=== PATIENT | female | born 1975 | race Caucasian/White ===

== ENCOUNTER → 2017-07-21 | Outpatient (CLI) | payer OTHER ==
[~2017-07-21] MED LIST: ALPHTAB4 PO; ASCO1CAP3 PO; CHOL200010 PO; GARLIC EXTRACT PO; KLN/5 PO; LACT3000 PO; MAGNESIUM/POTASSIUM PO; MISCCAP80 PO; MULTTAB58 PO; NAPR220T40 PO; OMEG10007 PO; POLY150C4 PO; PROG200C8 PO; TRAN1TAB47 PO; VITAMIN A PO
[2017-07-21 12:35] LABS: PTT PATIENT 26.8 SECONDS (21.0-31.0)
== END | disposition home or self-care (01) ==
LOC: C.LABBC 09:51
PROVIDERS: ATTEND Obstetrics & Gynecology
DX: N92.1 Excessive and frequent menstruation with irregular cycle (principal); D64.9 Anemia, unspecified

== ENCOUNTER 2019-05-03 08:07 | Inpatient (IN) ==
--- NOTE | 2019-04-23 08:37 | PAT Medication Instructions ---
Medication Instructions Date of Service April 23, 2019 Home Medications cholecalciferol (vitamin D3) 2,000 unit capsule 2,000 unit PO DAILY lactase 3,000 unit tablet 3,000 unit PO DAILY PRN multivitamin tablet 1 tab PO QAM naproxen sodium 220 mg tablet 220 mg PO DAILY PRN omega-3 acid ethyl esters 1 gram capsule 1 cap PO DAILY polysaccharide iron complex 150 mg iron capsule 150 mg PO QPM Floradix 20 mg PO BID bwyjg-p-dbqvfrkqldiff [Beano] 1 tab PO TIDM PRN ascorbic acid (vitamin C) [Vitamin C] 250 mg PO QID clonazepam 0.5 mg PO DAILY PRN iron ps [id number]-[id number] acid 1 cap PO QAM lactobacillus combination no.4 [Probiotic] 3,000 mmu cells PO QAM norethindrone acetate 5 mg PO QPM ASK your surgeon for instructions naproxen sodium 220 mg tablet 220 mg PO DAILY PRN ASK your prescriber and surgeon norethindrone acetate 5 mg PO QPM STOP taking 2 weeks before surgery (or as soon as possible if surgery is within 2 weeks) omega-3 acid ethyl esters 1 gram capsule 1 cap PO DAILY Floradix 20 mg PO BID DO NOT take the morning of surgery cholecalciferol (vitamin D3) 2,000 unit capsule 2,000 unit PO DAILY lactase 3,000 unit tablet 3,000 unit PO DAILY PRN multivitamin tablet 1 tab PO QAM polysaccharide iron complex 150 mg iron capsule 150 mg PO QPM [id number]-f-wjbpvfkgzgebf [Beano] 1 tab PO TIDM PRN ascorbic acid (vitamin C) [Vitamin C] 250 mg PO QID iron ps [id number]-[id number]-csibf acid 1 cap PO QAM lactobacillus combination no.4 [Probiotic] 3,000 mmu cells PO QAM Take morning of surgery clonazepam 0.5 mg PO DAILY PRN (if needed) Take evening before surgery clonazepam 0.5 mg PO DAILY PRN (if needed) Other Notes If you have any questions please call us at [phone] or [phone] or or [phone]
--- NOTE | 2019-04-23 10:17 | History and Physical Report ---
DATE OF ADMISSION: 04/24/2018 CHIEF COMPLAINT: Heavy vaginal bleeding, pelvic pain, anemia. HISTORY OF PRESENT ILLNESS: The patient is a 43-year-old 1, para 1. She has a history of arcuate wedge-shaped uterus, has been symptomatic with heavy vaginal bleeding for years and history of premature delivery at 34 weeks. She describes it is coming every 24 to 39 days. They can last from 6-10 days. She has 3-4 days of extremely heavy bleeding, soaking a pad and a tampon in under an hour and basically dropping her hemoglobin as a result of this bleeding. She is presently on iron supplements 4 times a day with vitamin C and she is barely able to keep her hemoglobin above 9 grams. Last hemoglobin on 04/11/2019 was 9.3 grams, presently been started on norethindrone 5 mg a day to stop her periods. She has continued on the iron supplements and she is scheduled for a total abdominal hysterectomy, preservation of the ovaries, removal of fallopian tubes in order to stop this heavy bleeding. PAST MEDICAL HISTORY: She has a boy in good health. ALLERGIES: SHE IS ALLERGIC TO SULFA WHICH GIVES HER A RASH. PAST SURGICAL HISTORY: She had 2 D&Cs. She had wisdom teeth removed. She had a colonoscopy. MEDICAL HISTORY: She has history of anemia. She has a history of interstitial cystitis. She has a history of irritable bowel, history of anxiety, neuropathy and myofascial pain syndrome. SOCIAL HISTORY: No smoking. No excessive alcohol intake. She works at home. FAMILY HISTORY: Mom 77, breast cancer diagnosed at age 65. Treated for leukemia. Father 71, of lung cancer at 71, has got 1 brother, 4 sisters, 1 sister is diabetic with high blood pressure. REVIEW OF SYSTEMS: HEAD: No symptoms of frequent or severe headaches, ear infections, nosebleeds or frequent severe sore throats. PHYSICAL EXAMINATION: GENERAL: Well-developed, well-nourished 43-year-old female, alert, oriented x3 and cooperative, no acute distress, appeared her stated age. EYES: Conjunctivae are pink. Sclerae white, no evidence of jaundice. EARS: Had normal light reflex bilaterally. HEART: Had regular rhythm. S1, S2 are normal. LUNGS: Clear to auscultation and percussion. ABDOMEN: Soft and nontender, no CVA tenderness. MUSCULOSKELETAL: No calf tenderness. PELVIC: Revealed an enlarged uterus about 8-9 weeks' size, retroverted. IMPRESSIONS OF THIS CASE: Status post removal of wisdom teeth, status post D and C x2, status post colonoscopy, myofascial pain syndrome, anemia, interstitial cystitis, irritable bowel, anxiety, neuropathy, suspected adenomyosis.
--- NOTE | 2019-04-23 10:43 | Anesthesiology Consultation ---
Date of Service April 23, 2019 Assessment & Plan (1) Encounter for pre-operative examination: - Check test AM DOS - Hx PONV: scopolamine patch ordered for AM DOS Chart Review Chart Review: Pending: Refer to Additional Notes / Consult section (pending preop labs, EKG) and Patient seen in Pre Admission Testing Teaching & Discussion Pre-Anesthesia Teaching/Discussion Notes: Instructed NPO after midnight before surgery,except medications with 15 cc of water. Medication instructions provided according to the PAT guidelines. History Surgery Operation Date: 05/03/19 10:35 Proposed Procedures p Total Abdominal Hysterectomy, Posisble Bilateral Salpingo Oophorectomy - Keon Shaffer MD Height/Weight Height: 5 ft 4 in Weight: 55.7 kg Allergies Allergy/AdvReac Type Severity Reaction Status Date / Time Sulfa (Sulfonamide Allergy Unknown RASH Verified 04/19/19 15:09 Antibiotics) Medications Home Medications Medication Instructions Recorded Confirmed Last Taken cholecalciferol (vitamin D3) 2,000 2,000 unit PO DAILY cap 04/06/19 04/19/19 Unknown unit capsule lactase 3,000 unit tablet 3,000 unit PO DAILY PRN tab 04/06/19 04/19/19 Unknown multivitamin tablet 1 tab PO QAM 04/06/19 04/19/19 Unknown naproxen sodium 220 mg tablet 220 mg PO DAILY PRN tab 04/06/19 04/19/19 Unknown omega-3 acid ethyl esters 1 gram 1 cap PO DAILY cap 04/06/19 04/19/19 Unknown capsule Floradix 20 mg PO BID 04/19/19 Unknown gdvex-x-lktrvrdxidxwe [Beano] 1 tab PO TIDM PRN 04/19/19 04/19/19 Unknown ascorbic acid (vitamin C) [Vitamin 250 mg PO QID 04/19/19 04/19/19 Unknown C] clonazepam 0.5 mg PO DAILY PRN 04/19/19 04/19/19 Unknown iron ps aaptvfw-[id number] acid 1 cap PO QAM 04/19/19 04/19/19 Unknown lactobacillus combination no.4 3,000 mmu cells PO QAM 04/19/19 04/19/19 Unknown [Probiotic] norethindrone acetate 5 mg PO QPM 04/19/19 04/19/19 Unknown Past Medical History Medical History Anxiety Heavy menstrual bleeding reason for upcoming procedure History of irregular heartbeat PVC's Interstitial cystitis Iron deficiency anemia hx blood transfusion (4U PRBCs) 12/2017 2/2 heavy menstrual bleeding-- hgb in the 7-8 range for past few months* Irritable bowel syndrome Neuropathy feet, hands Peripheral neuropathy Exercise / Class Metabolic Activity II 4-5 Yardwork/Stairs/Walk up hill Past Family History Family History Mother Deep vein thrombosis Breast cancer Hypertension Father Prostate cancer Myocardial infarction Lung cancer Aunt Uterine cancer maternal Sister Family history of diabetes mellitus Sister Family history of diabetes mellitus Past Surgical History Surgical History H/O laparoscopy diagnostic H/O oral surgery History of dilation and curettage X2; D&C, hysteroscopy: 12/28/17: Grade view 2 (slightly anterior), MAC#3, ETT 7 at [facility] History of hysteroscopy Hx of colonoscopy Past Anesthesia History No Hx of Anesthesia Complications (except PONV) and No Family Hx of Anesthesia Complications History of PONV History of PONV and Hx of Motion Sickness (occasional) Social History Smoking Status: Former smoker Do You Dip or Chew Tobacco: No Smoking End Date: Quit 1999 Hx Alcohol Use: Yes alcohol intake frequency: holidays/special occasions only Hx Substance Use: No Review of Systems Occasional palpitations 2/2 PVC's. Patient denies chest pain, shortness of breath, dyspnea on exertion, cough, wheezing. Physical Exam Vital Signs VITALS BP 96/59 (patient reports typically BP low-normal range in the 90's/50-60's) P 51 TEMP 98.4 SP02 100%RA RESP 16 PHYSICAL Full neck and c-spine range of motion. Full TMJ range of motion. TMD 3 finger breaths Mallampati Score 2 Dentition: upper/lower front chipped/worn 2/2 grinding Lungs: clear throughout to auscultation Cardiac: regular rate and rhythm, no murmurs noted Spine: normal Carotid arteries: negative bruit Extremities: no edema
[2019-04-23 12:13] LABS: Basophils # (auto) 0.01 K/uL (0-0.2); Basophils % (auto) 0.3 %; Eosinophils # (auto) 0.05 K/uL (0-0.5); Eosinophils % (auto) 1.3 %; Hematocrit (blood only) 34.4 % (37-47); Hemoglobin 11.1 g/dL (12.0-16.0); Lymphocytes % (auto) 18.2 %; Mean Corpuscular Hemoglobin 33.4 pg (25-34); Mean Corpuscular Hgb Conc 32.3 g/dL (32-36); Mean Corpuscular Volume 103.6 fL (80-100); Monocytes # (auto) 0.33 K/uL (0.11-0.59); Monocytes % (auto) 8.6 %; Neutrophils # (auto) 2.75 K/uL (1.4-6.5); Neutrophils % (auto) 71.6 %; Platelet Count 181 K/uL (130-400); RDW Coefficient of Variation 14.3 % (11.5-14.5); RDW Standard Deviation 55.1 fL (36.4-46.3); Red Blood Count 3.32 M/uL (4.2-5.4); White Blood Count 3.84 K/uL (4.8-10.8)
[2019-04-23 12:21] LABS: Partial Thromboplastin Ratio 0.9; Partial Thromboplastin Time 24.7 Seconds (21.0-31.0)
[2019-04-23 12:30] LABS: BUN Creatinine Ratio 25.8 (10-20); Calcium 9.6 mg/dl (8.5-10.1); Creatinine Clr Calc Pharmacy 118.2 ml/min; Est GFR (African American) 134.8; Est GFR (Non-African American) 116.3; Potassium 4.1 mmol/L (3.5-5.1)
[~2019-05-03 08:07] MED LIST changes: -ALPHTAB4 PO; -ASCO1CAP3 PO; -CHOL200010 PO; -GARLIC EXTRACT PO; -KLN/5 PO; -LACT3000 PO; +LR 15ML/HR IV SCH; -MAGNESIUM/POTASSIUM PO; -MISCCAP80 PO; -MULTTAB58 PO; -NAPR220T40 PO; -OMEG10007 PO; -POLY150C4 PO; -PROG200C8 PO; +SCOPOLAMINE 1.5 MG TDSY TD SCH; -TRAN1TAB47 PO; -VITAMIN A PO; +cefOXitin 2,000 MG in DEXTROSE 5% 50 ML IV SCH
--- NOTE | 2019-05-03 09:01 | History & Physical Bridge Note ---
Date of Service May 03, 2019 History & Physical Bridge Note I have examined the patient, reviewed the History & Physical and in the interval since the performance of the History & Physical I have noted the following changes of clinical significance: no changes noted
[2019-05-03] MEDS ORDERED: fentaNYL citrate 100 MCG/2 ML VIAL ONE (10:04)
[2019-05-03] MEDS ORDERED: MIDAZOLAM HCL 1 MG/ML 2ML VIAL ONE (10:04)
[2019-05-03] MEDS ORDERED: DEXAMETHASONE SOD INJ 4 MG/ML VIAL ONE (10:09)
[2019-05-03] MEDS ORDERED: ROCURONIUM BROMIDE 10 MG/ML 5 ML VIAL ONE (10:09)
[2019-05-03] MEDS ORDERED: ONDANSETRON INJ 2 MG/ML 2 ML VIAL ONE (10:09)
[2019-05-03] MEDS ORDERED: PROPOFOL IV EMULSION 10 MG/ML 20 ML VIAL IV ONE (10:09)
[2019-05-03] MEDS ORDERED: MoRPHine SULFATE PF 1 MG/ML 10 ML AMP/VIAL ONE (10:24)
[2019-05-03] MEDS ORDERED: HEPARIN (PORCINE) 1000 UNIT/ML 10 ML (CATH LAB USE ONLY) ONE (10:59)
[2019-05-03] MEDS ORDERED: NEOSTIGMINE METHYLSULFATE 5 MG/5 ML SYR ONE (12:45)
[2019-05-03] MEDS ORDERED: GLYCOPYRROLATE 0.2 MG/ML VIAL ONE (12:45)
--- NOTE | 2019-05-03 13:21 | Post Operative Brief Note ---
Immediate Post Op Note v1 Date of Surgery May 03, 2019 Pre & Post Diagnosis Operation Date: 05/03/19 09:15 Pre-Op Diagnosis: Heavy vaginal bleeding, pelvic pain, anemia Post-Op Diagnosis: Heavy vaginal bleeding, pelvic pain, anemia I identified the patient and participated in the time-out.: Yes Procedure Operation Date: 05/03/19 09:15 Actual Procedures p Total Abdominal Hysterectomy, Bilateral Salpingectomy(Bilateral) - Keon Shaffer MD suspension of vaginal cuff Surgeon Keon Shaffer MD Recruitment Consultant none Estimated Blood Loss 50 Findings Consistent with Post-Op Diagnosis Fluids 1200 ml Specimens uterus upper cervix both tubes Drains [place] Catheter (placed under general anethesia, tolerated well. ) and Other (yanira drain vaginal cuff) Anesthesia Type General Complications none Disposition Accompanied Patient To Recovery: No Disposition: Recovery Room
[2019-05-03] MEDS ORDERED: SENNA 8.6 MG TAB PO PRN (13:22)
[2019-05-03] MEDS ORDERED: bisacodyL 10 MG SUPP PR PRN (13:22)
[2019-05-03] MEDS ORDERED: MAGNESIUM HYDROXIDE SUSP 30 ML UDC PO PRN (13:22)
[2019-05-03] MEDS ORDERED: DiphenhydrAMINE HCL 50 MG/ML VIAL IV PRN (13:39)
[2019-05-03] MEDS ORDERED: NALOXONE HCL 0.4 MG/1 ML VIAL/CARP IV PRN (13:39)
[2019-05-03] MEDS ORDERED: ONDANSETRON INJ 2 MG/ML 2 ML VIAL IV PRN (13:39)
[2019-05-03] MEDS ORDERED: MoRPHine SULFATE PF 1 MG/ML 10 ML AMP/VIAL INT SPINAL ONE (13:39)
[2019-05-03] MEDS ORDERED: PROMETHAZINE HCL 25 MG in SODIUM CHLORIDE 0.9% 50 ML IV PRN (13:39)
[2019-05-03] MEDS ORDERED: NALOXONE HCL 0.08 MG in SYRINGE 1.8 ML IV PRN (13:39)
[2019-05-03] MEDS ORDERED: MoRPHine SULFATE 2 MG/ML CARP IV PRN (13:39)
[2019-05-03] MEDS ORDERED: ePHEDrine sulfate 50 MG/ML AMP IV PRN (13:39)
[2019-05-03] MEDS ORDERED: HYDROmorphone INJ 0.5 MG/0.5 ML SYR IV PRN (13:39)
[2019-05-03] MEDS ORDERED: METOCLOPRAMIDE HCL 20 MG in SODIUM CHLORIDE 0.9% 50 ML IV PRN (13:39)
[2019-05-03] MEDS ORDERED: NALBUPHINE HCL INJ 10 MG/ML AMP IV PRN (13:39)
[2019-05-03] MEDS ORDERED: LACTATED RINGER'S 500 ML IV PRN (13:39)
[2019-05-03] MEDS ORDERED: NALOXONE HCL 1 MG in SODIUM CHLORIDE 0.9% 1000ML 1,000 ML IV PRN (13:39)
[2019-05-03] MEDS ORDERED: SODIUM CHLORIDE 0.9% 1000ML 1,000 ML IV SCH (13:45)
[2019-05-03] MEDS ORDERED: DC INTRASPINAL MORPHINE SCH (13:45)
[2019-05-03] MEDS ORDERED: NO NARCOTICS OR SEDATIVES SCH (13:45)
--- NOTE | 2019-05-03 13:52 | Operative Report ---
DATE OF OPERATION: 05/03/2019 PROCEDURE: Total abdominal hysterectomy, suspension of vaginal cuff and bilateral salpingectomy. INDICATIONS FOR SURGERY: Anemia secondary to uncontrollable heavy vaginal bleeding. PREOPERATIVE DIAGNOSIS: Abnormal shaped uterus. POSTOPERATIVE DIAGNOSIS: Abnormal shaped uterus. SURGEON: Dr. Shaffer. ESTIMATED BLOOD LOSS: 50 mL. ANESTHESIA: General with spinal narcotics. OPERATIVE FINDINGS AND PROCEDURE: The patient was brought to the OR table, correctly identified by armband and conversation. General anesthesia was administered. Perineum and vagina were painted with Betadine paint, draped in usual sterile fashion. Catheter was placed into the bladder. Compression stockings were applied. Lower abdomen was painted with alcohol based sterilizing solution. Pfannenstiel incision was made, carried down to the anterior fascia by sharp dissection. Hemostasis was secured by electrocauterization. Fascia was incised transversely from the underlying muscle by blunt and sharp dissection. Recti muscles were in the midline exposing the peritoneum which was carefully raised and entered. The bowel and the abdomen was packed off from the pelvis. An O'Alberto-O'Ford self-retraining retractor was inserted into the incision. Uterus was grasped with a double tooth tenaculum. Round ligaments on either side were suture ligated, tagged and cut. Incision was made above the vesicouterine fold. Bladder was advanced out of the operative field. The tubes were carefully removed by suturing the mesosalpinx, the vasculature of the tubes with interrupted 3-0 plain, then the ovarian ligaments were cut by clamping close to the uterus, distal to the uterus and taking the tube along with the uterine specimen. They were cut on each side. The distal stumps were doubly ligated with transfixion suture of chromic catgut. Hemostasis was good. The uterine arteries were doubly clamped with curved Rashmi, cut, doubly ligated with chromic gut sutures and cauterized. Then, the bladder was advanced out of the operative field, upper portion of the cervix was also removed with a curved Rashmi sliding off the cervix on both the right and left side and then cutting the cardinal ligament with a stump and ligating with a transfixion suture of chromic catgut and then excising the surgical specimen, which consisted of the fundus of the uterus about half of the cervix in both tubes. Following this, the cervical edges were whipstitched open with a continuous interlocking suture of chromic catgut. I used a owuxep-yu-zhott suture of heavy Vicryl to obliterate the cul-de-sac by going proximally from the one uterosacral ligament to the other uterosacral ligament distally, pursestring the peritoneum in between and then going distally and then proximally, then tying it off. This obliterated the cul-de-sac and supported the cervix. I then suture ligated the stumps of the cardinal ligament to the edges of the cervix, brought the round ligaments down on each side, suture ligated to the cervical stump. I then reperitonealized the edges, which brought the peritoneal edges together, controlled all bleeding. A Carlos drain with a safety pin was pushed through the cervix into the vagina and the other end into the cul-de-sac, washed everything clean. Hemostasis was excellent. Packs were removed. The abdomen was closed anatomically. Peritoneum was closed with a mattress suture of chromic catgut. Recti muscles approximated with interrupted jgictb-fb-lkvkw suture of chromic catgut. The fascia was closed with continuous interlocking suture of Vicryl on each side, tied in the midline. SubQ was approximated with running plain and skin edge approximated with staple clips. I attest to the content of the Intraoperative Record and any orders documented therein. Any exception s are noted below.
--- NOTE | 2019-05-03 13:57 | Anesthesiology Progress Note ---
Date of Service May 03, 2019 Anesthesia Post Procedure Vital Signs Vital Signs: Temp Pulse Pulse Resp BP Pulse Ox 05/03/19 13:40 46 L 16 97/58 L 100 05/03/19 13:30 49 L 13 103/60 100 05/03/19 13:22 36.3 C L 57 L 16 96/59 L 100 05/03/19 08:26 37 C 59 L 18 116/74 97 Transfer of Care Handoff Completed per policy Notes Mental Status: alert / awake / arousable and participated in evaluation Patient Amnestic to Procedure: Yes Nausea / Vomiting: adequately controlled Pain: adequately controlled Airway Patency, RR, SpO2: stable & adequate BP & HR: stable & adequate Hydration State: stable & adequate Neuraxial Anesthesia: was administered and sensory block is resolving Anesthetic Complications: no major complications apparent
[2019-05-03] MEDS ORDERED: HYDROmorphone INJ 0.5 MG/0.5 ML SYR ONE (14:05)
[2019-05-03] MEDS: D5W AND LACTATED RINGERS 1,000 ML IV SCH ×2 (15:42→23:22)
[2019-05-03] MEDS: CHECK SCOPOLAMINE PATCH PLACEMENT SCH (15:44)
[2019-05-03] MEDS: MEPERIDINE HCL 25 MG/ML CARP IV PRN (15:44)
[2019-05-03] MEDS ORDERED: KETOROLAC 30 MG/ML VIAL IV ONE (19:50)
[2019-05-04] MEDS: MEPERIDINE HCL 25 MG/ML CARP IV PRN (04:56)
[2019-05-04] MEDS ORDERED: MEPERIDINE HCL 50 MG/ML CARP IV PRN (07:40)
[2019-05-04] MEDS ORDERED: ONDANSETRON INJ 2 MG/ML 2 ML VIAL IV PRN (07:40)
[2019-05-04] MEDS ORDERED: KETOROLAC 30 MG/ML VIAL IV PRN (07:40)
--- NOTE | 2019-05-04 09:55 | Obstetrical Progress Note ---
Date of Service May 04, 2019 Physical Exam Physical Exam: abdomen soft and non tender bowel sounds present and normal bandage removed incision is clean and dry vaginal bleeding scant no calf tenderness Results & Data Vital Signs (Past 12 Hours) Vital Signs Temp Pulse Resp BP Pulse Ox 05/04/19 06:15 15 98 05/04/19 05:15 16 98 05/04/19 04:35 37.3 C 69 17 105/61 100 05/04/19 04:15 16 99 05/04/19 03:15 15 98 05/04/19 02:15 16 98 05/04/19 01:15 14 99 05/04/19 00:15 16 98 05/03/19 23:25 37.1 C 71 16 110/66 99 05/03/19 23:15 15 97 05/03/19 22:15 15 100
[2019-05-04] MEDS: OXYCODONE/ACETAMINOPHEN 5mg/325mg TAB PO PRN ×2 (12:37→18:35)
[2019-05-04] MEDS: CHECK SCOPOLAMINE PATCH PLACEMENT SCH (16:00)
[2019-05-04] MEDS: IBUPROFEN 600 MG TAB PO PRN ×2 (17:02→21:43)
[2019-05-04] MEDS ORDERED: SIMETHICONE 80 MG CHEW PO ONE (20:50)
[2019-05-05] MEDS: OXYCODONE/ACETAMINOPHEN 5mg/325mg TAB PO PRN ×3 (02:07→13:38)
[2019-05-05] MEDS: IBUPROFEN 600 MG TAB PO PRN ×2 (06:34→12:16)
[2019-05-05] MEDS: SIMETHICONE 80 MG CHEW PO PRN ×2 (08:23→12:21)
--- NOTE | 2019-05-05 13:00 | Obstetrical Progress Note ---
Date of Service May 05, 2019 Physical Exam Physical Exam: abdomen soft and non tender incision is clean and dry vaginal bleeding scant yanira drain removed with safety pin no calf tenderness ambulating well hgb 11.1
--- NOTE | 2019-05-05 23:40 | Discharge Summary ---
She was admitted with a history of hypermenorrhea, bleeding and severe anemia. This has been occurring for well over a year. She gets flooding during her periods, soaking a pad and a tampon in under an hour, drop in her hemoglobin down to as low as the low 7s with symptoms of shortness of breath and headache. Recently, she has been placed on preoperative norethindrone 5 mg p.o. daily to stop her periods and to get her hemoglobin up. At the time of admission, her hemoglobin was 11.1. On the day of admission, she was given prophylactic antibiotics and spinal narcotics. She underwent a total abdominal hysterectomy along with bilateral salpingectomy. At the patient's request, she also had a piece of the cervix left. The cervical cuff suspended with obliteration of the uterosacral ligaments and suspension up on the round ligaments. Ovaries were both tacked up high in the pelvis on the sides. A [place] drain was placed in the vaginal cuff. Postoperatively, the patient did excellent. She remained afebrile throughout her postoperative stay. Bowel sounds returned in about 36 hours. On second postoperative day, [place] drain was removed from the cuff along with a safety pin. Her postoperative hemoglobin was 11.5. She was ambulating well, eating well and passing gas. She had been afebrile throughout her entire postoperative stay. She was given prescriptions for Percocet and Motrin for pain control and told to return to the office for removal of sukhwinder also told to call if she had temperature over 100 or any heavy bleeding.
== END 2019-05-05 14:57 | disposition home or self-care (01) | DRG 743 ==
LOC: ASU 08:07 → 4N 13:22